=== PATIENT | male | born 1995 | race Caucasian/White ===

== ENCOUNTER 2022-03-24 17:20 | Emergency (ER) | payer BC ==
[~2022-03-24] VITALS: Ht 172.7 cm; Wt 65.8 kg
[2022-03-24] MEDS ORDERED: BUSPIRONE HCL7.5 MG PO (17:44)
== END 2022-03-25 10:54 | disposition home or self-care (01) ==
LOC: ER 17:20
DX: F44.5 Conversion disorder with seizures or convulsions (principal); Z76.5 Malingerer [conscious simulation]; Z72.0 Tobacco use
CPT/HCPCS: 70544